=== PATIENT | female | born 1995 | race Caucasian/White ===

== ENCOUNTER 2021-05-19 03:19 | Emergency (ER) | payer SELFPAY ==
[2021-05-19 03:33] VITALS: BP 101/65; PULSE 64; TEMP 97.8; BMI 22.2
== END 2021-05-19 05:57 | disposition home or self-care (01) ==
LOC: FER 03:19
DX: F10.129 Alcohol abuse with intoxication, unspecified (principal)
CPT/HCPCS: 99281-25